=== PATIENT | male | born 1980 | race Caucasian/White ===

== ENCOUNTER 2017-05-21 11:00 | Inpatient (IN) | payer OTHER ==
[~2017-05-21] VITALS: Ht 182.9 cm; Wt 90.7 kg
--- NOTE | ~2017-05-21 | PN ---
Unit #: [id number] #: [id number] Patient: JACK GONZALEZ [id number] [facility] [address] [place] [address] [id number] I MR#: [id number] NAME: JACK GONZALEZ ROOM: 14 Age: 36 Sex: M Admission Date: 05/21/2017 : 1980 Attending Physician: Nakul Maharaj M.D. Admitting Physician: Nakul Maharaj M.D. Primary Care Physician: Generic Doctor Not In System [facility] PROGRESS NOTES DATE OF SERVICE 05/24/2017 DISCUSSION Jack Gonzalez is a 36-year-old male. The patient reported still feeling paranoid, guarded, but denied any hallucination. Denied any thoughts of harming self or others. Compliant, cooperative, but still guarded. The patient's urine drugs screen was negative. Currently on Risperdal. No side effects from medication. Complete Review of Systems: Unremarkable. MENTAL STATUS EXAMINATION General Appearance: The patient dressed casually. Attention span, concentration: Fair. Oriented in place and person. Mood and affect labile. Speech: Monotone. Thought process: Guarded, paranoid. Recent and remote memory: Poor. Insight and judgment: Poor. DIAGNOSIS 1. Schizophrenia, chronic, paranoid type. 2. Methamphetamine abuse. 3. Rule out psychosis secondary to methamphetamine abuse. ASSESSMENT/PLAN Advised to continue with current medication and therapeutic protocol. If needed, consider further adjustment of medication. Dictated by... Shantal Guerra/shaheed TD: 05/26/2017 09:05 JOB #: [id number] Unit #: [id number] #: [id number] Patient: JACK GONZALEZ PROGRESS NOTES Page 1 of 1 X Joselito Shelton MD X PROGRESS NOTE
--- NOTE | ~2017-05-21 | PN ---
Unit #: [id number] #: [id number] Patient: XIOMARA AYOUB [id number] [facility] [address] [place] [address] [id number] I MR#: [id number] NAME: XIOMARA AYOUB ROOM: 14 Age: 36 Sex: M Admission Date: 05/21/2017 : 1980 Attending Physician: Nakul Maharaj M.D. Admitting Physician: Nakul Maharaj M.D. Primary Care Physician: Derek Doctor Not In System [facility] PROGRESS NOTES DATE 05/23/2017 DISCUSSION Mr. Ayoub is a 36-year-old, white male who was seen today and chart was reviewed and case was discussed with the staff. He has been doing fairly well with no agitation, irritability or behavioral problems and has been calm and cooperative with the treatment recommendations. He has been taking the medication and tolerating them fairly well with no reported side effects. MENTAL STATUS EXAM Young white male who was casually dressed with fair personal hygiene, appears to be in no acute distress or discomfort. He was awake and alert on interaction with intact orientation. His mood was anxious with congruent affect. His speech was slow and goal directed. He denies any suicidal or homicidal ideation. He does report some auditory or visual hallucinations. His insight and judgement remains significantly impaired. TREATMENT PLAN 1. We will discontinue his Haldol and as such we will switch his and we will monitor his response and make further adjustments as needed. Dictated by... Shantal Navarrete/madelyn TD: 05/24/2017 21:19 JOB #: [id number] Unit #: [id number] #: [id number] [facility]: [facility] PROGRESS NOTES Page 1 of 1 X Nakul Maharaj MD PROGRESS NOTE
--- NOTE | ~2017-05-21 | DS ---
Unit #: [id number] #: [id number] Patient: XIOMARA AYOUB [id number] [facility] [address] [place] [address] [id number] I MR#: [id number] NAME: XIOMARA AYOUB ROOM: [facility] Age: 36 Sex: M Admission Date: 05/21/2017 : 1980 Discharge Date: 05/25/2017 Attending Physician: Nakul Maharaj M.D. Primary Care Physician: Generic Doctor Not In System DISCHARGE SUMMARY REASON FOR ADMISSION Psychosis, needing detox. DIAGNOSTIC STUDIES LABORATORY RESULTS: Unremarkable. HOSPITAL COURSE The patient was admitted to inpatient unit on 05/21/2017 and discharged on 05/25/2017. The patient was treated on the inpatient unit with group therapy, individual therapy, medication management. The patient was responsive to treatment. Subsequently, the patient was discharged with a plan to follow up in outpatient program. DISCHARGE MEDICATIONS Risperdal 1 mg b.i.d. for psychosis, Desyrel 100 mg at bedtime for sleep, Vistaril 50 mg q.6 p.r.n. for anxiety DISCHARGE DIAGNOSES Psychiatric: Schizophrenia, chronic paranoid type, F20.0; amphetamine use disorder, severe, F15.20. Secondary diagnosis: Deferred. Medical diagnosis: Hypertension, hepatitis C. Stressors: Psychosocial stressors. DISCHARGE INSTRUCTIONS The patient to follow up in outpatient clinic as per secondary social studies teacher. CONDITION ON DISCHARGE The patient was pleasant and cooperative. Denied any psychotic symptom or any suicidal ideation. PROGNOSIS Guarded. DIET AND ACTIVITY As tolerated. Dictated by... Joselito Shelton M.D. Unit #: [id number] #: [id number] Patient: XIOMARA AYOUB SZC/modl TD: 05/25/2017 20:38 JOB #: [id number] DISCHARGE SUMMARY Page 1 of 1 X Joselito Shelton MD X DISCHARGE SUMMARY
--- NOTE | ~2017-05-21 | PN ---
Unit #: [id number] #: [id number] Patient: XIOMARA AYOUB [id number] [facility] [address] [place] [address] [id number] I MR#: [id number] NAME: XIOMARA AYOUB ROOM: P114 Age: 36 Sex: M Admission Date: 05/21/2017 : 1980 Attending Physician: Nakul Maharaj M.D. Admitting Physician: Nakul Maharaj M.D. Primary Care Physician: Generic Doctor Not In System [facility] PROGRESS NOTES DATE 05/22/2017 DISCUSSION Mr. Ayoub is a 36-year-old, white male who was seen today and chart was reviewed and case was discussed with the staff. He was anxious, withdrawn and with acute psychosis and significant paranoia and delusional behavior and has been rather seclusive to himself. However, he has not shown any agitation or aggression. He has been taking medications and tolerating them fairly well with no reported side effects. MENTAL STATUS EXAM Young white male who was casually dressed with fair personal hygiene, appears to be in no acute distress or discomfort. He was awake and alert with intact orientation. His mood was anxious with a congruent affect. He denies any suicidal or homicidal ideation. His insight and judgement remains slightly impaired. TREATMENT PLAN 1. We will continue him on his current medications and treatment protocol. We will monitor his response to the medication and make further adjustments as needed. 2. We will continue to follow up. Dictated by... Shantal Navarrete/madelyn TD: 05/24/2017 02:43 JOB #: [id number] Unit #: [id number] #: [id number] Patient: XIOMARA AYOUB [facility] PROGRESS NOTES Page 1 of 1 X Nakul Maharaj MD PROGRESS NOTE
--- NOTE | ~2017-05-21 | PA ---
Unit #: [id number] #: [id number] Patient: XIOMARA AYOUB [id number] [facility] [address] [place] [address] [id number] Berta MR#: [id number] NAME: XIOMARA AYOUB ROOM: P114 Age: 36 Sex: M Admission Date: 05/21/2017 : 1980 Date of Assessment: Attending Physician: Nakul Maharaj M.D. Admitting Physician: Nakul Maharaj M.D. Primary Care Physician: Generic Doctor Not In System PSYCHIATRIC ASSESSMENT DATE OF SERVICE 05/21/2017. IDENTIFYING DATA Mr. Garcia is a 36-year-old, single, white male who is a resident of [place], [place], and was self-referred to the hospital on a voluntary basis. CHIEF COMPLAINT "They have hacked my phone. I can't even use it anymore." HISTORY OF PRESENT ILLNESS Mr. Garcia is a 36-year-old white male with history of mood disorder and psychosis, who came to the hospital with acute psychosis, paranoia, and delusional behavior stating that people are after him. They trying to kill him and "they have hacked my phone. I can't even use it anymore . They have been looking for me for about a week or so and that is my mom and grandmom out there and I think they put a hit out on me, I don't know why they are trying to kill me." The patient reports that he was at [facility] 2 to 3 times in the same day and he reports that he wanted to admit him, but he refused and reports that he has been seeing a demon usually and has an anxious feeling and something bad is about to happen and reports that they have talked about "mark choi and I saw him yesterday sometime I will hear him and not see him or vice versa." The patient reports that he has not slept for 4 days and the days on the run and mother and grandmother who walked out and did not stay for assessment, though they accompanied him. The patient stated "I was working but my boss I had to stop working for him. I have to leave my house because my roommate was trying to kill me. I have not slept in 4 days. I lost my job, my friends, and my family. All because they all trying to kill me. They might have a big insurance policy on me. They really want me ." He reports a strained relationship with family and friends due to his paranoia and drug use and as such, recommendation for inpatient level of care for safety and stabilization was made. The patient was transferred to us. SUBSTANCE ABUSE HISTORY The patient reports infrequent use of alcohol, cannabis, and cocaine in the past, though it appears methamphetamine has been his drug of choice and he last used yesterday, but snorting it. PAST PSYCHIATRIC HISTORY The patient has had history of inpatient and outpatient psychiatric and Unit #: [id number] #: [id number] Patient: XIOMARA AYOUB chemical dependency treatment. Review of the medical records indicate currently he is not active in any treatment program, is not seeing a psychiatrist, and not taking any psychotropic medications. PAST MEDICAL HISTORY Hypertension and hepatitis C. ALLERGIES No known medication allergies. CURRENT MEDICATIONS None. PERSONAL AND SOCIAL HISTORY A 36-year-old white male who reports that he is single, unemployed, and essentially homeless and has poor social support system. MENTAL STATUS EXAMINATION Young white male who was casually dressed with fair personal hygiene, appears to be in no acute distress or discomfort. He was awake and alert on interaction with intact orientation to time, place, and person. His mood was anxious and depressed with a congruent affect. His speech was slow and restricted in content. His thought processes were disorganized with some looseness of associations and paranoid ideations and delusional behavior. His insight and judgment remain significantly impaired. DIAGNOSTIC IMPRESSION Psychiatric: Chronic paranoid schizophrenia; methamphetamine dependence, moderate. Medical: Hypertension, hepatitis C. Stressors: Moderate psychosocial stressors. TREATMENT PLAN 1. The patient has presented with history of chronic mental illness and has been decompensating and will need inpatient hospitalization for safety and stabilization. We will start him back on his home medications. We will adjust the medications and monitor response. 2. Supportive therapy was provided to the patient. ESTIMATED LENGTH OF STAY 5 to 7 days. ABILITY TO HELP SELF Limited. WILLINGNESS TO HELP SELF The patient appears to be willing to help self. STRENGTHS 1. Communicative. 2. Cooperative. PROBLEMS 1. Chronic dysphoric symptoms. 2. Poor social support system. DISCHARGE CRITERIA This will be contingent upon the patient's ability to show resolution of his depression and psychosis and his ability to stay safe to himself, Unit #: [id number] #: [id number] Patient: XIOMARA AYOUB particularly after discharge from the hospital. Dictated by... Shantal Nvaarrete/kapil TD: 05/22/2017 11:17 JOB #: [id number] PSYCHIATRIC ASSESSMENT Page 1 of 1 X Nakul Maharaj MD X PSYCHIATRIC ASSESSMENT
--- NOTE | ~2017-05-21 | CO ---
Unit #: [id number] #: [id number] Patient: XIOMARA AYOUB [id number] [facility] [address] [place] [address] [id number] I MR#: [id number] NAME: XIOMARA AYOUB ROOM: 14 Age: 36 Sex: M Admission Date: 05/21/2017 : 1980 Attending Physician: Nakul Maharaj M.D. Primary Care Physician: Generic Doctor Not In System Consultation Date: 05/22/2017 CONSULTATION REPORT REASON FOR CONSULTATION Right arm pain. SUBJECTIVE The patient is a 36-year-old male, who states that he has had some right arm pain. He states that he has been having this pain since [facility] and they "placed a tracking device" in his arm. He states he feels the government is out to get him. OBJECTIVE GENERAL: The patient is awake, alert, in no acute distress. VITAL SIGNS: Stable. CHEST: Clear. LUNGS: Clear. CARDIOVASCULAR: S1 and S2. EXTREMITIES: No clubbing, edema, or cyanosis. Full range of motion of the right arm. ASSESSMENT Right arm pain. PLAN At this time, the patient is not complaining of any right arm pain. He has full range of motion of his arm. I will prescribe Tylenol 650 mg p.o. q.6 hours p.r.n. for pain. Dictated by... Sailaja Mendez A.P.R.N. for Jericho Mina M.D. AM/kapil TD: 05/22/2017 12:29 JOB #: [id number] Unit #: [id number] #: [id number] Patient: XIOMARA AYOUB CONSULTATION REPORT Page 1 of 1 X Sailaja Mendez APRN X CONSULTATION REPORT
--- NOTE | ~2017-05-21 | HP ---
Unit #: [id number] #: [id number] Patient: XIOMARA AYOUB [id number] [facility] [address] [place] [address] [id number] I MR#: [id number] NAME: XIOMARA AYOUB ROOM: P114 Age: 36 Sex: M Admission Date: 05/21/2017 : 1980 Attending Physician: Nakul Maharaj M.D. Admitting Physician: Nakul Maharaj M.D. Primary Care Physician: Generic Doctor Not In System HISTORY AND PHYSICAL HISTORY OF PRESENT ILLNESS The patient is a 37-year-old man who has been admitted to [facility] for paranoid delusions and substance abuse. PAST MEDICAL HISTORY 1. Hypertension. 2. Hepatitis C. PAST SURGICAL HISTORY None. ALLERGIES No known allergies. HOME MEDICATIONS None. FAMILY HISTORY Medically noncontributory. SOCIAL HISTORY The patient endorses tobaccoism and heroin abuse. He occasionally drinks alcohol. REVIEW OF SYSTEMS CONSTITUTIONAL: Denies fever or chills. HEENT: Denies sore throat, ear pain, or runny nose. CARDIOVASCULAR: No chest pain, irregular heart rate, or palpitations. CHEST: Denies shortness of breath or hemoptysis. GI: Denies nausea, vomiting, diarrhea, or chronic constipation. ENDOCRINE: Denies increased thirst or urination. Denies any recent weight loss or gain. : Denies dysuria, frequency, or hematuria. SKIN: Denies any rashes. HEMATOLOGIC: Denies any increased bleeding or bruising. MUSCULOSKELETAL: Denies hot, swollen joints. No generalized muscle pain. NEUROLOGIC: Denies problems with speech, vision, numbness, or tingling. Denies loss of bowel or bladder control. PHYSICAL EXAMINATION GENERAL: The patient is awake, in no acute distress. VITAL SIGNS: Temperature 99.1, heart rate 120, respirations 24, blood pressure 126/70. He is 6 feet. Weighs 200 pounds. Unit #: [id number] #: [id number] Patient: XIOMARA AYOUB HEENT: Head is atraumatic, normocephalic. Pupils are equal, round, and reactive. Extraocular movements are intact. No drainage from ears or nose. NECK: Supple. Trachea is midline. HEART: Regular rate and rhythm. LUNGS: Clear. ABDOMEN: Soft, nontender, nondistended. : Not done. SKIN: Warm, dry. EXTREMITIES: No clubbing, cyanosis, or edema. NEUROLOGIC: Cranial nerves II through XII intact. No focal deficits. Sensory and motor function: Grossly normal. Moves all extremities well. Coordination: Gait normal. Deep tendon reflexes intact. IMPRESSION Psychiatric admission. RECOMMENDATIONS PSYCHIATRIC: Per psychiatrist. MEDICAL: I see no contraindication for this patient to participate in facility activities. MEDICAL PROGNOSIS Fair. MEDICAL CONDITION Stable. Dictated by... Sailaja Mendez A.P.R.N. AM/shaheed TD: 05/22/2017 11:01 JOB #: [id number] HISTORY AND PHYSICAL Page 1 of 1 X Sailaja Mendez APRN X HISTORY AND PHYSICAL
[2017-05-22 11:28] LABS: BASOPHIL# 0.1 X10e3 (0-0.3); BASOPHIL% 0.8 % (0-2.5); EOSINOPHIL# 0.2 X10e3 (0-0.7); EOSINOPHIL% 3.1 % (0.0-7.0); HEMATOCRIT 45.3 % (38.0-50.0); HEMOGLOBIN 15.4 gm/dL (13.0-16.0); LYMPHOCYTE# 1.9 X10e3 (1.0-3.5); MEAN CELL VOLUME 87.8 FL (83-96); MEAN CORPUSCULAR HEMOGLOBIN 29.8 PG (28-34); MEAN CORPUSCULAR HGB CONC 33.9 g/dL (30-36); MEAN PLATELET VOLUME 8.2 FL (6.5-11.5); MONOCYTE# 0.7 X10e3 (0-1.0); MONOCYTE% 11.1 % (3.0-12.0); NEUTROPHIL# 3.4 X10e3 (1.5-7.1); PLATELET COUNT 225 X10e3 (140-420); RED BLOOD COUNT 5.16 X10e (3.90-5.60); RED CELL DISTRIBUTION WIDTH 13.3 % (11.0-15.5); WHITE BLOOD COUNT 6.3 X10e3 (4.0-10.5)
[2017-05-22 11:31] LABS: DIFF IND NO
[2017-05-22 11:54] LABS: ALBUMIN SERUM 3.8 g/dL (3.5-5.0); BILIRUBIN,TOTAL 1.7 mg/dL (0.2-2.0); BUN/CREATININE RATIO 19.09; CALCIUM SERUM 8.7 mg/dL (8.4-10.2); CREATININE SERUM 1.1 mg/dL (0.6-1.4); GLOM FILT RATE Estimated 84.7 mL/min (>60); POTASSIUM 4.4 mmol/L (3.5-5.1); PROTEIN TOTAL SERUM 6.8 g/dL (6.0-8.3); THYROID STIMULATING HORMONE 0.61 uIU/ml (0.34-5.60)
[2017-05-22 12:00] LABS: FREE THYROXIN (T4) 1.26 ng/dL (0.58-1.64)
[2017-05-24 12:33] LABS: URINE APPEARANCE CLEAR; URINE BILIRUBIN NEG (NEG); URINE BLOOD NEG (NEG); URINE COLOR YELLOW; URINE GLUCOSE NEG (NEG); URINE KETONE NEG (NEG); URINE LEUKOCYTE ESTERASE NEG (NEG); URINE NITRATE NEG (NEG); URINE PH 5.5 (5-8); URINE PROTEIN NEG (NEG); URINE SPECIFIC GRAVITY 1.024 (1.003-1.035); URINE UROBILINOGEN 0.2 MG/DL (NEG)
[2017-05-24 12:59] LABS: AMPHETAMINE NEG (NEG); BARBITURATES NEG (NEG); BENZODIAZEPINES NEG (NEG); COCAINE NEG (NEG); MARIJUANA NEG (NEG); OPIATES NEG (NEG); TRICYCLIC ANTIDEPRESSANTS NEG (NEG); U METHADONE NEG (NEG)
== END 2017-05-25 10:21 | disposition home or self-care (01) | DRG 885 ==
LOC: P1S 13:30
PROVIDERS: Psychiatry & Neurology Psychiatry
DX: F20.0 Paranoid schizophrenia (principal); F15.20 Other stimulant dependence, uncomplicated; I10 Essential (primary) hypertension; B19.20 Unspecified viral hepatitis C without hepatic coma; M79.601 Pain in right arm
CPT/HCPCS: 80053; 80307; 81003; 84439; 84443; 85025